=== PATIENT | female | born 1965 | race Caucasian/White ===

== ENCOUNTER 2021-10-22 19:47 | Emergency (ER) | payer BC ==
[2021-10-22] MEDS ORDERED: Lactated Ringers 1,000 ML IV ONE (20:15)
[2021-10-22] MEDS ORDERED: Ondansetron 4 MG Tab.DIS PO ONE (20:15)
[2021-10-22] MEDS ORDERED: Acetaminophen 325 MG Tab PO STA (21:50)
== END 2021-10-22 23:03 | disposition home or self-care (01) ==
LOC: JD.ED 19:47
DX: R11.2 Nausea with vomiting, unspecified (principal); E03.9 Hypothyroidism, unspecified; M19.90 Unspecified osteoarthritis, unspecified site; Z79.899 Other long term (current) drug therapy; Z79.82 Long term (current) use of aspirin
CPT/HCPCS: 36415; 80053; 85025; 99284; A9270; J7120

== ENCOUNTER → 2021-10-22 | Day surgery (SDC) | payer BC ==
[~2021-10-22] MED LIST: Acetaminophen 325 MG Tab PO SCH; Ketorolac 30 MG/ML SDV ONE; Lactated Ringers 1,000 ML IV SCH; Lactated Ringers 1,000 ML ONE; Lidocaine 1% 4 ML ONE; Lidocaine 1%/Sod Bicarbonate in NS 8.4% 1 ML Syringe IDERM PRN; Midazolam 1 MG/ML 2 ML SDV ONE; Morphine 8 MG, EPINEPHrine 0.3 MG, Cefuroxime 750 MG, Ketorolac 30 MG, Sodium Chloride ... PRN; Ondansetron 4 MG/2 ML SDV IVPUSH PRN; Ondansetron 4 MG/2 ML SDV ONE; Pregabalin 25 MG Cap PO SCH; Propofol 200 MG/20 ML SDV ONE; Sodium Chloride 0.9% 10 ML Syringe FLUSH PRN; Sodium Chloride 0.9% 10 ML Syringe FLUSH SCH; Vancomycin 1 GM SDV ONE; ceFAZolin 1 GM Vial ONE; diphenhydrAMINE 50 MG/ML SDV IVPUSH PRN; ePHEDrine 50 MG/ML SDV ONE; fentaNYL 100 MCG/2 ML SDV IVPUSH PRN; fentaNYL 100 MCG/2 ML SDV ONE; oxyCODONE 5 MG Tab PO ONE; oxyCODONE ER 10 MG TAB.ER PO SCH
== END | disposition home or self-care (01) ==
LOC: JD.SDS 14:49
PROVIDERS: ATTEND Orthopaedic Surgery
DX: M16.11 Unilateral primary osteoarthritis, right hip (principal); E03.9 Hypothyroidism, unspecified; H54.7 Unspecified visual loss; Z91.018 Allergy to other foods; Z79.890 Hormone replacement therapy; Z79.82 Long term (current) use of aspirin; Z79.899 Other long term (current) drug therapy
CPT/HCPCS: 0055T; 27130; 36415; 73501; 86850; 86900; 86901; 97110; 97116; 97161; A9270; C1713; C1776; J0171; J0690; J0697; J1885; J2250; J2270; J2704; J3010; J3370; J7120; 01214; J2405

== ENCOUNTER 2022-05-07 09:13 | Emergency (ER) | payer BC | END 2022-05-07 10:20 | disposition home or self-care (01) | LOC: JD.ED 09:13 | DX: M79.89 Other specified soft tissue disorders (principal); Z96.642 Presence of left artificial hip joint | CPT/HCPCS: 73502-26-LT; 73502-LT; 99284 ==

== ENCOUNTER 2022-05-22 06:36 | Day surgery (SDC) | payer BC ==
[~2022-05-22 06:36] MED LIST changes: -Ketorolac 30 MG/ML SDV ONE; -Lactated Ringers 1,000 ML IV SCH; -Lactated Ringers 1,000 ML ONE; -Lidocaine 1% 4 ML ONE; -Morphine 8 MG, EPINEPHrine 0.3 MG, Cefuroxime 750 MG, Ketorolac 30 MG, Sodium Chloride ... PRN; -Ondansetron 4 MG/2 ML SDV IVPUSH PRN; -Ondansetron 4 MG/2 ML SDV ONE; -Vancomycin 1 GM SDV ONE; -ceFAZolin 1 GM Vial ONE; -diphenhydrAMINE 50 MG/ML SDV IVPUSH PRN; -ePHEDrine 50 MG/ML SDV ONE; -fentaNYL 100 MCG/2 ML SDV IVPUSH PRN; -fentaNYL 100 MCG/2 ML SDV ONE; -oxyCODONE 5 MG Tab PO ONE
[2022-05-22] MEDS: Lactated Ringers 1,000 ML IV SCH ×2 (06:39→10:50)
[2022-05-22] MEDS ORDERED: Scopolamine 1.5 MG Transdermal Patch TRDERM PRN (06:49)
[2022-05-22] MEDS ORDERED: fentaNYL 100 MCG/2 ML SDV IVPUSH PRN (06:55)
[2022-05-22] MEDS ORDERED: Ondansetron 4 MG/2 ML SDV IVPUSH PRN (06:55)
[2022-05-22] MEDS ORDERED: HYDROmorphone 0.5 MG/0.5 ML Syringe IVPUSH PRN (06:55)
[2022-05-22] MEDS ORDERED: ceFAZolin 2 GM Vial ONE (07:32)
[2022-05-22] MEDS ORDERED: Phenylephrine HCl In 0.9% NaCl 1 MG/10 ML Vial ONE (07:35)
[2022-05-22] MEDS ORDERED: ePHEDrine 50 MG/ML SDV ONE (08:01)
[2022-05-22] MEDS: Tranexamic Acid 1,000 MG/10 ML Vial ONE ×2 (08:04→09:19)
[2022-05-22] MEDS: Vancomycin 1 GM SDV ONE ×2 (08:11→09:19)
[2022-05-22] MEDS: Morphine 8 MG, EPINEPHrine 0.3 MG, Cefuroxime 750 MG, Ketorolac 30 MG, Sodium Chloride ... PRN ×10 (08:12→09:18)
[2022-05-22] MEDS ORDERED: Propofol 200 MG/20 ML SDV ONE ×2 (08:35→09:07)
[2022-05-22] MEDS ORDERED: Midazolam 1 MG/ML 2 ML SDV ONE (08:39)
[2022-05-22] MEDS ORDERED: Dexamethasone 4 MG/ML 5 ML MDV ONE (09:05)
[2022-05-22] MEDS ORDERED: Ondansetron 4 MG/2 ML SDV ONE (09:05)
[2022-05-22] MEDS ORDERED: Ketorolac 30 MG/ML SDV ONE (09:26)
== END 2022-05-22 12:53 | disposition home or self-care (01) ==
LOC: JD.SDS 06:36
PROVIDERS: ATTEND Orthopaedic Surgery
DX: T84.091A Other mechanical complication of internal left hip prosthesis, initial encounter (principal); E03.4 Atrophy of thyroid (acquired); Z79.899 Other long term (current) drug therapy; Z79.890 Hormone replacement therapy; Z91.018 Allergy to other foods; Z96.643 Presence of artificial hip joint, bilateral
CPT/HCPCS: 27134; 73501; 97161; A9270; C1713; C1776; J0171; J0690; J0697; J1100; J1885; J2250; J2270; J2405; J2704; J3370; J7120; 01402